=== PATIENT | female | born 1960 | race Caucasian/White ===

== ENCOUNTER 2018-05-10 13:55 | Emergency (ER) | payer OTHER ==
[2018-05-10] MEDS ORDERED: IBUPROFEN 600 MG TABLET (FP) PO ONE ×2 (14:08→14:12)
[2018-05-10 14:27] VITALS: BP 119/67; PULSE 82; TEMP 98.8; BMI 30.6
--- NOTE | 2018-05-10 14:31 | PDOC ---
History of Present Illness - General Chief Complaint: Pain Stated Complaint: LEFT ANKLE PAIN Time Seen by Provider: 05/10/18 13:58 - History of Present Illness Initial Comments: 05/10/18 14:31 58 F with h/o colonic polyps, hypertension, hyperlipidemia, and hypothyroidism , schizoaffective disorder, and diffuse arthritis, presenting with L ankle pain x 2 weeks. Pt states that she awoke with the pain. Denies any falls or injury. States that the pain comes and goes. She notes that she is on her feet a lot at work. She denies any swelling in her ankles or legs. Pt states that she tried to make an appointment with ortho but couldn't get in to see them until next July. Pt has been taking tylenol with minimal relief. Past History - Past Medical History Allergies/Adverse Reactions: Allergies Allergy/AdvReac Type Severity Reaction Status Date / Time diphenhydramine HCl Allergy Intermediate Hives Verified 05/10/18 14:21 [From Benadryl] Tetanus Vaccines and Toxoid Allergy Intermediate Hives Verified 05/10/18 14:21 [Tetanus] aloe vera Allergy Mild Rash Verified 05/10/18 14:21 house dust Allergy Mild SNEEZING Verified 05/10/18 14:21 latex Allergy Rash Verified 05/10/18 14:21 hydrocortisone AdvReac Intermediate Rash Verified 05/10/18 14:21 [From Cortizone-10] BEE STINGS Allergy Severe Difficulty Uncoded 05/10/18 14:21 Breathing LEMON Allergy Intermediate Hives Uncoded 05/10/18 14:21 TOMATO Allergy Intermediate Rash Uncoded 05/10/18 14:21 MOLD Allergy Mild SNEEZING Uncoded 05/10/18 14:21 TREES Allergy Mild SNEEZING Uncoded 05/10/18 14:21 MAGNESIUM CITRATED AdvReac Intermediate Vomiting Uncoded 05/10/18 14:21 Home Medications: Ambulatory Orders Simvastatin [Zocor] 20 mg PO HS 06/20/12 Calcium [Natural Calcium] 1,000 mg PO DAILY 08/30/12 Cholecalciferol (Vitamin D3) [Vitamin D3] 3,000 unit PO DAILY tablet 12/09/14 Cyanocobalamin/Folic Acid [Vitamin X28-Esngp Acid Tablet] 1 each PO DAILY tablet 12/09/14 Risperidone 0.5 mg PO HS tablet 12/09/14 Fexofenadine HCl [Mandy Allergy] 180 mg PO DAILY 11/10/15 Atomoxetine HCl [Strattera] 40 mg PO DAILY 12/17/15 Multivitamin [Poly-Vitamin] 1 each PO DAILY 12/17/15 Polyethylene Glycol 3350 [Miralax (For Bowel Prep) -] 255 gm PO DAILY 12/17/15 Escitalopram Oxalate [Lexapro] 20 mg PO DAILY tablet 03/31/16 Iron,Carbonyl [Feosol] 45 mg PO Q48H 05/10/18 Anemia: No Asthma: No Cancer: No Cardiac Disorders: No CVA: No COPD: No CHF: No Dementia: No Diabetes: No GI Disorders: Yes (COLONIC POLYPS CONSTIPATION) Disorders: No HTN: Yes Hypercholesterolemia: Yes Liver Disease: No Psychiatric Problems: Yes (SCHITZO AFFECTIVE DISORDER) Seizures: No Thyroid Disease: Yes - Surgical History Abdominal Surgery: No Appendectomy: No Cardiac Surgery: No Cholecystectomy: No Lung Surgery: No Neurologic Surgery: No Orthopedic Surgery: Yes (BILATERAL CARPAL TUNNEL SURGERY) - Suicide/Smoking/Psychosocial Hx Smoking Status: No Smoking History: Never smoked Have you smoked in the past 12 months: No Number of Cigarettes Smoked Daily: 0 Hx Alcohol Use: No Drug/Substance Use Hx: No Substance Use Type: None Hx Substance Use Treatment: No Review of Systems - Review of Systems Comments:: 05/10/18 14:33 "GENERAL/CONSTITUTIONAL: No fever or chills. No weakness. HEAD, EYES, EARS, NOSE AND THROAT: No change in vision. No ear pain or discharge. No sore throat. CARDIOVASCULAR: No chest pain or shortness of breath. RESPIRATORY: No cough, wheezing, or hemoptysis. GASTROINTESTINAL: No nausea, vomiting, diarrhea or constipation. GENITOURINARY: No dysuria, frequency, or change in urination. MUSCULOSKELETAL: + L ankle pain. No neck or back pain. SKIN: No rash NEUROLOGIC: No headache, vertigo, loss of consciousness, or change in strength/ sensation. ENDOCRINE: No increased thirst. No abnormal weight change. HEMATOLOGIC/LYMPHATIC: No anemia, easy bleeding, or history of blood clots. ALLERGIC/IMMUNOLOGIC: No hives or skin allergy. *Physical Exam - Vital Signs Last Vital Signs Temp Pulse Resp BP Pulse Ox 98.8 F 82 16 119/67 100 05/10/18 13:56 05/10/18 13:56 05/10/18 13:56 05/10/18 13:56 05/10/18 13:56 - Physical Exam Comments: 05/10/18 14:33 GENERAL: Awake, alert, and fully oriented, in no acute distress. HEAD: No signs of trauma EYES: PERRLA, EOMI, sclera anicteric, conjunctiva clear ENT: Auricles normal inspection, hearing grossly normal, nares patent, oropharynx clear without exudates. Moist mucosa NECK: Nontender, no stepoffs, Normal ROM, supple, no lymphadenopathy, JVD, or masses LUNGS: Breath sounds equal, clear to auscultation bilaterally. No wheezes, and no crackles HEART: Regular rate and rhythm, normal S1 and S2, no murmurs, rubs or gallops ABDOMEN: Soft, nontender, normoactive bowel sounds. No guarding, no rebound. No masses EXTREMITIES: + L ankle TTP at distal fibula, no deformity, Normal range of motion, no edema. No clubbing or cyanosis. No cords, erythema NEUROLOGICAL: Cranial nerves II through XII intact. 5/5 strength and sensation in all extremities, Normal speech, normal gait, normal cerebellar function SKIN: Warm, Dry, normal turgor, no rashes or lesions noted. ED Treatment Course - RADIOLOGY Radiology Studies Ordered: Category Date Time Status ANKLE-LEFT [RAD] Stat Radiology 05/10/18 14:08 Taken - Medications Given in the ED: ED Medications Discontinued Medications Generic Name Dose Route Start Last Admin Trade Name Freq PRN Reason Stop Dose Admin Ibuprofen 600 mg 05/10/18 14:08 05/10/18 14:15 Motrin - PO 05/10/18 14:09 600 mg ONCE ONE Administration Medical Decision Making - Medical Decision Making 05/10/18 14:33 58 F with L ankle pain. Unlikely fx as pain is atraumatic. Pt with no asymmetric edema to suggest DVT, and pt has no DVT risk factors. - XR - Motrin - F/u ortho 05/10/18 15:40 XR negative on my read Pt reports improved pain with motrin Pt is well appearing, with normal vitals. Clinically stable for DC at this time. I discussed the physical exam findings, ancillary test results and final diagnoses with the patient. I answered all of the patient's questions. The patient was satisfied with the care received and felt comfortable with the discharge plan and treatment plan. The patient agrees to follow up with the primary care physician within 24-72 hours. *DC/Admit/Observation/Transfer Diagnosis at time of Disposition: Left ankle pain - Discharge Dispostion Disposition: HOME Condition at time of disposition: Good - Referrals Referrals: Carlos Boyce MD [Primary Care Provider] - Sohail Sahu MD [Staff Physician] - Leonides Ac MD [Staff Physician] - - Patient Instructions Printed Discharge Instructions: DI for Ankle Pain Additional Instructions: Take tylenol or motrin as needed for pain. Avoid bearing weight when possible. Keep your ankle elevated and iced to reduce swelling. Call the number provided to make an appointment with orthopedics. If you experience worsening pain, swelling, redness, or any other concerning symptoms, return to the ER immediately. - Post Discharge Activity Forms/Work/School Notes: Back to Work - Attestations Physician Attestion: 05/10/18 14:35 I, Dr. Antonio Platt MD, attest that this document has been prepared under my direction and personally reviewed by me in its entirety. I further attest, that it accurately reflects all work, treatment, procedures and medical decision -making performed by me.
== END 2018-05-10 16:00 | disposition home or self-care (01) ==
LOC: FER 13:55
DX: M25.572 Pain in left ankle and joints of left foot (principal); I10 Essential (primary) hypertension; E78.5 Hyperlipidemia, unspecified; E03.9 Hypothyroidism, unspecified; F25.9 Schizoaffective disorder, unspecified; M19.90 Unspecified osteoarthritis, unspecified site
CPT/HCPCS: 73610-TC-LT-FY; 99282-25

== ENCOUNTER 2021-03-16 04:34 | Day surgery (SDC) | payer OTHER ==
[2021-03-11 16:35] VITALS: BMI 44.8
[2021-03-16 09:42] VITALS: TEMP 97.4
[2021-03-16 10:18] VITALS: BP 109/51; PULSE 80
== END 2021-03-16 10:32 | disposition home or self-care (01) ==
LOC: JASU-ENDO 04:34
PROVIDERS: ATTEND Internal Medicine Gastroenterology
PROC: 0DJD8ZZ Inspection of Lower Intestinal Tract, Via Natural or Artificial Opening Endoscopic (ICD-10-PCS; principal; 2021-03-16 09:00)
DX: Z12.11 Encounter for screening for malignant neoplasm of colon (principal); Z86.010 Personal history of colon polyps; K64.8 Other hemorrhoids; K59.89 Other specified functional intestinal disorders; I10 Essential (primary) hypertension; E03.9 Hypothyroidism, unspecified; E78.5 Hyperlipidemia, unspecified; D64.9 Anemia, unspecified

== ENCOUNTER 2022-12-27 10:05 | Emergency (ER) | payer OTHER ==
[2022-12-27 10:32] VITALS: BP 134/79; PULSE 112; RESP 20; TEMP 98.8; BMI 42.5
[2022-12-27] MEDS ORDERED: KETOROLAC TROMETHAMINE 30 MG/1 ML VIAL IM ONE (10:39)
[2022-12-27] MEDS ORDERED: LIDOCAINE 5% TOPICAL PATCH TP ONE (10:40)
[2022-12-27] MEDS ORDERED: KETOROLAC TROMETHAMINE 30 MG/1 ML VIAL ONE (10:43)
[2022-12-27] MEDS ORDERED: LIDOCAINE 5% TOPICAL PATCH ONE (10:43)
[2022-12-27] MEDS ORDERED: LIDOCAINE PATCH REMOVAL MC SCH (22:00)
== END 2022-12-27 11:35 | disposition home or self-care (01) ==
LOC: FER 10:05
PROC: 3E0233Z Introduction of Anti-inflammatory into Muscle, Percutaneous Approach (ICD-10-PCS; principal; 2022-12-27)
DX: M54.50 Low back pain, unspecified (principal); V89.2XXA Person injured in unspecified motor-vehicle accident, traffic, initial encounter; Y93.I9 Activity, other involving external motion; Y92.410 Unspecified street and highway as the place of occurrence of the external cause
CPT/HCPCS: 99284-25